=== PATIENT | male | born 1975 | race Caucasian/White ===

== ENCOUNTER 2016-12-27 14:01 | Emergency (ER) | payer BC ==
[~2016-12-27] VITALS: Ht 190.5 cm; Wt 145.1 kg
[2016-12-27 14:30] VITALS: BP 143/90
--- NOTE | 2016-12-27 15:30 | RAD ---
Indication injury, pain. Left chest pain. A single view of the chest was obtained as well as multiple films targeted to left ribs. No prior imaging is available. The heart and pulmonary vessels appear normal. The lungs are clear of acute infiltrates. There is no pleural fluid. There is no pneumothorax. Films targeted to left ribs appear unremarkable. IMPRESSION: No acute finding in the chest. Normal plain films left ribs
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
== END 2016-12-27 15:55 | disposition home or self-care (01) ==
LOC: ER 14:01
DX: S20.219A Contusion of unspecified front wall of thorax, initial encounter (principal); E11.9 Type 2 diabetes mellitus without complications; G89.29 Other chronic pain; Z86.718 Personal history of other venous thrombosis and embolism; F17.200 Nicotine dependence, unspecified, uncomplicated; Z88.2 Allergy status to sulfonamides; Z88.8 Allergy status to other drugs, medicaments and biological substances; Z88.1 Allergy status to other antibiotic agents; Z91.013 Allergy to seafood; V03.90XA Pedestrian on foot injured in collision with car, pick-up truck or van, unspecified whether traffic or nontraffic accident, initial encounter; Y93.89 Activity, other specified; Y92.89 Other specified places as the place of occurrence of the external cause; Y99.8 Other external cause status
CPT/HCPCS: 71101; 99284